=== PATIENT | female | born 1955 | race Caucasian/White ===

== ENCOUNTER 2018-06-03 03:26 | Emergency (ER) | payer OTHER ==
[2018-06-03 04:11] VITALS: BMI 25.7
[2018-06-03 04:14] VITALS: PULSE 72; TEMP 97.9
--- NOTE | 2018-06-03 06:08 | ED PDOC ---
HPI: Back Time Seen by Provider: 06/03/18 04:39 Chief Complaint (Nursing): Back Pain Chief Complaint (Provider): Right lower back pain History Per: Patient History/Exam Limitations: no limitations Onset/Duration Of Symptoms: Days Current Symptoms Are (Timing): Still Present Quality Of Discomfort: Sharp Severity: Moderate Previous Symptoms: None Associated Symptoms: None Exacerbating Factor(s): Movement Additional Complaint(s): 63 yo female with history of hypothyroid disease presents with right lower back pain after picking up a toddler. Pt states that she has been taking motrin and it has been helping. PT states she was doing well until 06/02 when she picked up her granddaughter again. PT took motrin today and it did not help. Pt denies numbness/tingling. No urinary complaints. No N/V/D. Eating and drinking normally, Past Medical History Reviewed: Historical Data, Nursing Documentation, Vital Signs Vital Signs: Last Vital Signs Temp 97.9 F 06/03/18 04:11 Pulse 72 06/03/18 04:11 Resp 18 06/03/18 04:11 BP 132/82 06/03/18 04:11 Pulse Ox 100 06/03/18 04:11 - Medical History PMH: Hypothyroidism - Surgical History Surgical History: No Surg Hx - Family History Family History: States: No Known Family Hx - Living Arrangements Living Arrangements: With Family - Social History Current smoker - smoking cessation education provided: No Alcohol: None Drugs: Denies - Home Medications Home Medications: Ambulatory Orders Medication Instructions Recorded Cyclobenzaprine [Cyclobenzaprine 10 mg PO Q8H #20 tab 06/03/18 HCl] Naproxen [Naprosyn] 500 mg PO BID PRN #20 tablet 06/03/18 - Allergies Allergies/Adverse Reactions: Allergies Allergy/AdvReac Type Severity Reaction Status Date / Time No Known Allergies Allergy Verified 06/03/18 04:11 Review of Systems ROS Statement: Except As Marked, All Systems Reviewed And Found Negative Constitutional: Negative for: Fever, Chills ENT: Negative for: Ear Pain, Ear Discharge Cardiovascular: Negative for: Chest Pain, Palpitations Respiratory: Negative for: Cough, Shortness of Breath, SOB with Exertion Gastrointestinal: Negative for: Nausea, Vomiting, Abdominal Pain, Diarrhea Musculoskeletal: Positive for: Back Pain Skin: Negative for: Rash, Lesions, Jaundice, Bruising Neurological: Negative for: Weakness, Numbness, Incoordination, Change in Speech Psych: Negative for: Anxiety, Depression Physical Exam - Reviewed Nursing Documentation Reviewed: Yes Vital Signs Reviewed: Yes - Physical Exam Appears: Positive for: Well, Non-toxic, No Acute Distress Head Exam: Positive for: ATRAUMATIC, NORMAL INSPECTION, NORMOCEPHALIC Skin: Positive for: Normal Color, Warm, DRY Eye Exam: Positive for: Normal appearance ENT: Positive for: Normal ENT Inspection Neck: Positive for: Normal, Painless ROM Cardiovascular/Chest: Positive for: Regular Rate, Rhythm Respiratory: Positive for: Normal Breath Sounds. Negative for: Accessory Muscle Use, Respiratory Distress Back: Positive for: Normal Inspection, Other ((+) right leg raise ). Negative for: Vertebral Tenderness Extremity: Positive for: Normal ROM Neurologic/Psych: Positive for: Alert, Oriented, Gait - ECG O2 Sat by Pulse Oximetry: 100 Pulse Ox Interpretation: Normal Medical Decision Making Medical Decision Making: XR normal. Disposition - Clinical Impression Clinical Impression: Sciatica - Patient ED Disposition Is Patient to be Admitted: No Counseled Patient/Family Regarding: Diagnosis, Need For Followup, Rx Given - Disposition Disposition: Routine/Home Disposition Time: 06:06 Condition: GOOD Prescriptions: Cyclobenzaprine [Cyclobenzaprine HCl] 10 mg PO Q8H #20 tab Naproxen [Naprosyn] 500 mg PO BID PRN #20 tablet PRN Reason: Pain Instructions: Sciatica (DC), Sciatica Exercises
[2018-06-03] MEDS ORDERED: Oxycodone/Acetaminophen 5/325 mg Tab PO STA (06:14)
[2018-06-03] MEDS ORDERED: Oxycodone/Acetaminophen 5/325 mg Tab ONE (06:28)
[2018-06-03 06:54] VITALS: BP 128/70; RESP 20; O2SAT 98
--- NOTE | 2018-06-03 13:34 | RAD ---
Date of service: 06/03/2018 PROCEDURE: Radiographs of the Lumbar Spine. HISTORY: back pain s/p lifting toddler COMPARISON: No prior. FINDINGS: BONES: Normal alignment. No listhesis. No fracture. DISC SPACES: Unremarkable. OTHER FINDINGS: None. IMPRESSION: Unremarkable radiographs of the lumbar spine.
== END 2018-06-03 06:45 | disposition home or self-care (01) ==
LOC: H.ER 03:26
DX: M54.30 Sciatica, unspecified side (principal); E03.9 Hypothyroidism, unspecified